=== PATIENT | male | born 1985 | race Caucasian/White ===

== ENCOUNTER → 2016-07-14 | Outpatient (CLI) | payer OTHER ==
[~2016-07-14] MED LIST: HYDR-3363 PO; IBUP600T OR; LYRI150C PO; SOMA350T PO; TRAM50TA2 PO; WELL100T OR
[2016-07-20 08:55] LABS: HCV Genotype 1a
== END ==
LOC: M LAB 12:48
PROVIDERS: ATTEND Family Medicine
DX: B18.2 Chronic viral hepatitis C (principal)

== ENCOUNTER → 2016-07-22 | Outpatient (CLI) | payer OTHER ==
--- NOTE | 2016-07-31 00:23 | ECWPNPC ---
PATIENT NAME: ANJELICA CORTEZ : 1985 GENDER: MALE VISIT DATE: 07/22/2016 DISCHARGE DATE: 07/22/16 1442 VISIT LOCKED DATE TIME: PHYSICIAN: CAROLE GIORDANO RESOURCE: CAROLE GIORDANO REASON FOR APPOINTMENT 1. MEDICATION HISTORY OF PRESENT ILLNESS FALL RISK SCREENING: SCREENING :NO FALLS IN THE PAST YEAR PAIN SCREENING: PATIENT HAS A COMPLAINT OF ACUTE OR CHRONIC PAIN :YES TODAY'S VISIT: NOTES: PT IS FORMALLY A PATIENT OF [facility] LAST SEEN HERE ON 02/02/12. MOST RECENTLY HE HAS BEEN FOLLOWED BY HIS PCP DR ARAUZ FOR CHRONIC LOW BACK PAIN. CURRENTLY IS WORKING WITH DR IRENE MARTINEZ. REPORTS PAIN IS CENTERED ACROSS THE WHOLE BACK WITH RADIATION TO THE HIPS AND THE LEGS TO THE LEVEL OF THE KNEE. RATES PAIN TODAY 7/10. NOTES THAT PROLONGED STANDING OR LIFTING AGGRAVATES THE PAIN. PAIN MAKES SLEEP DIFFICULT. HAS BEEN USING HEAT AND A BED MASSAGER WHICH CAN HELP. INTERMITTANT N/T IN FEET. NO RECENT IMAGING STUDIES. NO RECENT INJURIES OR TRAUMA. HAVING SOME ISSUES WITH CONSTIPATION. THIS IS NEW.. CURRENT MEDICATIONS TAKING ESCITALOPRAM OXALATE 20 MG TABLET 0.5 TABLET ORALLY ONCE A DAY TAKING SUBOXONE 8-2 MG FILM 1 FILM UNDER THE TONGUE AND ALLOW TO DISSOLVE SUBLINGUAL ONCE A DAY TAKING CLONIDINE HCL 0.2 MG TABLET 1 TABLET ORALLY ONCE A DAY TAKING CONCERTA 36 MG TABLET EXTENDED RELEASE 1 TABLET IN THE MORNING ORALLY ONCE A DAY TAKING IBUPROFEN 800 MG TABLET 1 TABLET WITH FOOD OR MILK ORALLY THREE TIMES DAILY NEEDED TAKING GABAPENTIN 800 MG TABLET 1 TABLET ORALLY THREE TIMES A DAY DISCONTINUED WELLBUTRIN SR 150 MG TABLET EXTENDED RELEASE 12 HOUR 1 TABLET ORALLY TWICE A DAY DISCONTINUED TYLENOL EXTRA STRENGTH 500 MG TABLET 2 TABLET ORALLY EVERY 6 HRS NEEDED DISCONTINUED LYRICA 100 MG CAPSULE 1 CAPSULE ORALLY TWICE A DAY DISCONTINUED FLEXERIL 10 MG TABLET 1 TABLET ORALLY ONCE A DAY AT NIGHT DISCONTINUED CUSTOM DO NOT USE TRAMADOL 50 MG TABLET ONE TAB ORALLY EVERY 12 HOURS PRN PAIN DISCONTINUED LEXAPRO 20 MG TABLET 0.5 TABLET ORALLY ONCE A DAY MEDICATION LIST REVIEWED AND RECONCILED WITH THE PATIENT PAST MEDICAL HISTORY 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 SOCIAL HISTORY GENERAL: TOBACCO USE ARE YOU A:CURRENT SMOKER 1/2 PPD X 15 YEARS HOW MANY CIGARETTES A DAY DO YOU SMOKE?11-20 HOW SOON AFTER YOU WAKE UP DO YOU SMOKE YOUR FIRST CIGARETTE?6-30 MIN HOW OFTEN DO YOU SMOKE CIGARETTES?EVERY DAY PATIENT COUNSELED ON THE DANGERS OF TOBACCO USE AND URGED TO QUIT:07/22/2016 ARE YOU INTERESTED IN QUITTING?NOT READY TO QUIT COUNSELED THE PATIENT ON SMOKING EFFECTS, EDUCATION [id number]/2017 LUNG CANCER SCREENING SMOKING STATUS:CURRENT SMOKER RECREATIONAL DRUG USE DENIES. CAFFEINE >5/DAY. HIV / HEP-C SCREENING HEP-C TEST OFFERED TO PATIENT: PT POSITIVE FOR HEPATITIS C OCCUPATION: UNEMPLOYED. DIET: REGULAR. EXERCISE: NO REGULAR EXERCISE. MARITAL STATUS: . PETS: 1 PUPPY. NONDENOMINATIONAL [id number] NONE LANGUAGE LANGUAGES SPOKEN:SAMI EDUCATION LEVEL OF EDUCATION:FINISHED HIGH SCHOOL LEARNING BARRIERS / SPECIAL NEEDS BARRIERS TO LEARNING?NO HEARING IMPAIRED?NO VISION IMPAIRED?NO COGNITIVELY IMPAIRED?NO READINESS TO LEARN?YES LEARNING PREFERENCES?NO TRAVEL OUTSIDE US: NONE. HOUSING: RENTS APARTMENT. DOMESTIC VIOLENCE NONE. PT ORIENTED TO UNIT, PLAN OF CARE. PT VERBALIZES UNDERSTANDING. HOSPITALIZATION/MAJOR DIAGNOSTIC PROCEDURE OPIATE ADDICTION TREATMENT 2013 REVIEW OF SYSTEMS CONSTITUTIONAL: ANY CHANGE IN YOUR MEDICAL CONDITION? NO . ANXIETY BEING TREATED FOR ANXIETY . CHILLS NO . FEVER NO . INFECTION: DO YOU HAVE NEW INFECTIONS? NO . DO YOU HAVE HISTORY OF MRSA? NO . MUSCULOSKELETAL: ANY NEW PATTERNS OF PAIN OR NUMBNESS? YES PT REPORTS NEW PAIN IN KNEES. PAIN IN BACK NOW EXTENDS BOTH TOWARDS UPPER BACK AND DOWN BUTTOCKS/TAIL BONE. . SYTEMIC LUPUS NO . GASTROENTEROLOGY: ANY NEW CHANGE IN BOWEL CONTROL? YES PT REPORTS INCREASED CONSTIPATION RECENTLY, HAS BOWEL MOVEMENTS ONLY 1-2 TIMES/WEEK, HARD TO PASS. . BARRETTS ESOPHAGUS NO . CIRRHOSIS NO . HEPATITIS YES . LIVER FAILURE NO . ACID REFLUX NO . UNEXPLAINED WEIGHT LOSS NO . GENITOURINARY: ANY NEW CHANGE IN BLADDER CONTROL? NO . IS THERE A CHANCE YOU COULD BE ? NO . HEMATOLOGY/LYMPH: GENERAL HEPATITIS C = VIRAL LOAD RECENTLY DRAWN - IS IN DISCUSSION WITH DR MARTINEZ REGARDING . DO YOU TAKE ANY BLOOD THINNERS? (FOR EXAMPLE- COUMADIN, PLAVIX, AGGRENOX, PLATEL, PRADAXA, OR XARELTO) NO . WHEN WAS YOUR LAST DOSE? DATE: TIME: . LOW PLATELET COUNT NO . SICKLE CELL DISEASE NO . VON WILLIEBRANDS NO . FACTOR V LEIDEN NO . THALLASEMIA NO . ANEMIA NO . EASY BRUISING NO . NEUROLOGY: HAVE YOU FALLEN IN THE PAST 6 MONTHS? NO . ANY NEW EXTREMITY NUMBNESS OR WEAKNESS? NO . HEAD INJURY NO . DEMENTIA NO . CEREBRAL PALSY NO . MULTIPLE SCLEROSIS NO . DIZZINESS NO . HEADACHE NO . STROKES NO . VERTIGO NO . CARDIOLOGY: DO YOU HAVE A PACEMAKER OR DEFIBRILLATOR? NO . ANGINA NO . HEART ATTACK NO . HEART SURGERY NO . CONGESTIVE HEART FAILURE/FLUID OVERLOAD NO . CHEST PAIN NO . HIGH BLOOD PRESSURE NO . IRREGULAR HEART BEAT NO . RESPIRATORY: HAVE YOU BEEN SICK IN THE PAST WEEK? NO . FEVER NO . FLU LIKE SYMPTOMS? NO . CPAP NO . BYPAP NO . ASTHMA NO . EMPHYSEMA NO . CHRONIC LUNG DISEASES NO . SHORTNESS OF BREATH ON EXERTION NO . COUGH NO . SNORING NO . INTEGUMENTARY: DO YOU HAVE ANY RASHES OR OPEN SORES? NO . ALLERGIC/IMMUNO: ARE YOU ALLERGIC TO SHELLFISH OR IV DYE? YES . ANY NEW ALLERGIES? NO . PSYCHIATRIC: DO YOU HAVE THOUGHTS OF HURTING YOURSELF OR SOMEONE ELSE? NO . ARE YOU ABUSED, NEGLECTED, OR IN AN UNSAFE ENVIRONMENT? NO . ENDOCRINOLOGY: ARE YOU DIABETIC? NO . THYROID DISORDER NO . OTHER: DO YOU NEED ANY PRESCRIPTIONS? NO . IF YES, PLEASE LIST: ____ . ANY NEW PROBLEMS WITH YOUR MEDICATIONS? NO . WHEN DID YOU LAST EAT? ____ . WHEN DID YOU LAST DRINK? ____ . WHAT DID YOU LAST DRINK? ____ . NAME OF PERSON DRIVING YOU HOME? ____ . DO YOU HAVE ANY OTHER QUESTIONS OR CONCERNS NO . REVIEWED BY: PROVIDER: CAROLE MILAN . VITAL SIGNS WT 176.6 LBS, HT 68 IN, BMI 26.85 INDEX, BP 126/68 MM HG, HR 61 /MIN, RR 16 /MIN, TEMP 98.8 F, OXYGEN SAT % 99%, SAFE IN ENV? (Y/N) YES, NA INITIALS SC 13:28, REVIEWED BY: VERITO. EXAMINATION GENERAL EXAMINATION: GENERAL APPEARANCE:APPEARS OLDER THAN STATED AGE. PSYCHALERT , ORIENTED X 3 , QUIET, AVOIDS EYE CONTACT. HEENT:NORMOCEPHALIC, NO LYMPHADENOPATHY, NIO THYROMEGLY. RORO DISCS IN EAR LOBES. LUNGS:CLEAR TO AUSCULTATION BILATERALLY, DECREASED AIR ENTRY AT , NO WHEEZES RALES OR RHONCHI. HEART:HEART RATE REGULAR, RAPID,, NO MURMURS, CLICK OR RUBS. MUSCULOSKELETAL:SLR+ 20 BILAT, POINT TENDER OVER LSP AND SIJ BILAT. FLEX TO 45 DEGREES, TPI ALONG SCAPULA BILATERALLY. , MUSCLE STRENGTH TESTING 5/5 BILATERAL LOWER ETREMITIES. POSTURE STOOPED. NEUROLOGIC EXAM:NO SENSORY DEFICEIT, DTR'S 3 + FEW BEATS CLONUS. . DIAGNOSTIC TESTS REVIEWEDNO RECENT IMAGING STUDIES. ASSESSMENTS DEGENERATIVE DISC DISEASE, LUMBAR - M51.36 (PRIMARY) MYALGIA - M79.1 LUMBAR RADICULOPATHY - M54.16 TREATMENT DEGENERATIVE DISC DISEASE, LUMBAR START SOMA TABLET, 350 MG, 1 TABLET NEEDED, ORALLY, BEFORE BEDTIME, 30 DAY(S), 30, REFILLS 1 [facility] MRI SPINE, L.S. WITHOUT [id number],SUSAN M 07/22/2016 2:31:16 PM > INCREASED LE WEAKNESS AND LADICULAR SYMPTOMS [facility] : SPINE,THORACIC W/BENDING [id number] CLINICAL NOTES: ISTOP REGISTRY REVIEWED AND DEMNOSTRATES COMPLLIANCE. IS CURRENTLY ON SUBOXONE THERAPY. HAS HAD NSAIDS X 6 WEEKS IN SUPERVISED SETTING WITHOUT IMPROVEMENT. HAS BEEN TRIED ON MUSCLE RELAXERS WITH DID HELP IN THE PAST BUT HAS HAD NUMEROUS TTRAMAS IN THE LAST 3 YEARS. WILL REQUEST AUTH FOR MRI OF LUMBAR SPINE AND WILL MOVE TO INTERVENTIONAL THERAPY. PROCEDURE CODES FA211 ESTABILISHED PATIENT [facility] FACILITY CHARGE DISPOSITION & COMMUNICATION FOLLOW UP 3-4 WEEKS (REASON: CHECK AUTH FOR MRI LUMBAR SPINE) ELECTRONICALLY SIGNED BY SRIKANTH ADDISON ON 07/30/2016 AT 06:09 PM EDT DISCLAIMER : THIS IS A VISIT SUMMARY EXTRACTED FROM THE [employer] CHART. IT IS NOT A COPY OF THE [employer] PROGRESS NOTE. MTDD
== END ==
LOC: M PAIN 13:20
PROVIDERS: ATTEND Nurse Practitioner Family
DX: G89.29 Other chronic pain (principal); M51.16 Intervertebral disc disorders with radiculopathy, lumbar region; M79.1 Myalgia; I10 Essential (primary) hypertension; B18.2 Chronic viral hepatitis C; F17.210 Nicotine dependence, cigarettes, uncomplicated; Z91.013 Allergy to seafood; Z79.1 Long term (current) use of non-steroidal anti-inflammatories (NSAID); Z79.899 Other long term (current) drug therapy

== ENCOUNTER → 2016-08-17 | Outpatient (CLI) | payer OTHER | LOC: M PAIN 14:00 | PROVIDERS: ATTEND Nurse Practitioner Family | DX: G89.29 Other chronic pain (principal) ==

== ENCOUNTER → 2016-08-21 | Outpatient (CLI) | payer OTHER ==
--- NOTE | 2016-09-09 00:27 | ECWPNPC ---
PATIENT NAME: ANJELICA CORTEZ : 1985 GENDER: MALE VISIT DATE: 08/21/2016 DISCHARGE DATE: 08/21/16 1139 VISIT LOCKED DATE TIME: PHYSICIAN: CAROLE GIORDANO RESOURCE: CAROLE GIORDANO REASON FOR APPOINTMENT 1. BACK HISTORY OF PRESENT ILLNESS HISTORY OF PRESENT ILLNESS: PAIN THE PATIENT DESCRIBES THE PAIN... FALL RISK SCREENING: SCREENING :NO FALLS IN THE PAST YEAR TODAY'S VISIT: NOTES: RATES PAIN LEVEL TODAY 6/10. DESCRIBES PAIN CONSTANT, SHARP AND STABBING, TENDER AND THROBBING SOR AND SHOOTING. . CURRENT MEDICATIONS TAKING ESCITALOPRAM OXALATE 20 MG TABLET 0.5 TABLET ORALLY ONCE A DAY, NOTES: TAKES NEEDED TAKING SUBOXONE 8-2 MG FILM 1 FILM UNDER THE TONGUE AND ALLOW TO DISSOLVE SUBLINGUAL ONCE A DAY TAKING CLONIDINE HCL 0.2 MG TABLET 1 TABLET ORALLY ONCE A DAY, NOTES: AT NIGHT ONLY TAKING CONCERTA 36 MG TABLET EXTENDED RELEASE 1 TABLET IN THE MORNING ORALLY ONCE A DAY TAKING IBUPROFEN 800 MG TABLET 1 TABLET WITH FOOD OR MILK ORALLY THREE TIMES DAILY NEEDED TAKING GABAPENTIN 800 MG TABLET 1 TABLET ORALLY THREE TIMES A DAY TAKING SOMA 350 MG TABLET 1 TABLET NEEDED ORALLY BID MEDICATION LIST REVIEWED AND RECONCILED WITH THE PATIENT PAST MEDICAL HISTORY 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 CONSTITUTIONAL: ANY CHANGE IN YOUR MEDICAL CONDITION? NO . CHILLS NO . FEVER NO . INFECTION: DO YOU HAVE NEW INFECTIONS? NO . DO YOU HAVE HISTORY OF MRSA? NO . MUSCULOSKELETAL: ANY NEW PATTERNS OF PAIN OR NUMBNESS? NO . GASTROENTEROLOGY: ANY NEW CHANGE IN BOWEL CONTROL? NO . GENITOURINARY: ANY NEW CHANGE IN BLADDER CONTROL? NO . IS THERE A CHANCE YOU COULD BE ? NO . HEMATOLOGY/LYMPH: DO YOU TAKE ANY BLOOD THINNERS? (FOR EXAMPLE- COUMADIN, PLAVIX, AGGRENOX, PLATEL, PRADAXA, OR XARELTO) NO . WHEN WAS YOUR LAST DOSE? DATE: TIME: . NEUROLOGY: HAVE YOU FALLEN IN THE PAST 6 MONTHS? NO . ANY NEW EXTREMITY NUMBNESS OR WEAKNESS? NO . CARDIOLOGY: DO YOU HAVE A PACEMAKER OR DEFIBRILLATOR? NO . RESPIRATORY: HAVE YOU BEEN SICK IN THE PAST WEEK? NO . FEVER NO . FLU LIKE SYMPTOMS? NO . COUGH NO . INTEGUMENTARY: DO YOU HAVE ANY RASHES OR OPEN SORES? NO . ALLERGIC/IMMUNO: ARE YOU ALLERGIC TO SHELLFISH OR IV DYE? SHELLFISH . ANY NEW ALLERGIES? NO . PSYCHIATRIC: DO YOU HAVE THOUGHTS OF HURTING YOURSELF OR SOMEONE ELSE? NO . ARE YOU ABUSED, NEGLECTED, OR IN AN UNSAFE ENVIRONMENT? NO . ENDOCRINOLOGY: ARE YOU DIABETIC? NO . OTHER: DO YOU NEED ANY PRESCRIPTIONS? NO . IF YES, PLEASE LIST: ____ . ANY NEW PROBLEMS WITH YOUR MEDICATIONS? NO . WHEN DID YOU LAST EAT? ____ . WHEN DID YOU LAST DRINK? ____ . WHAT DID YOU LAST DRINK? ____ . NAME OF PERSON DRIVING YOU HOME? ____ . DO YOU HAVE ANY OTHER QUESTIONS OR CONCERNS NO . VITAL SIGNS WT 175.6 LBS, HT 68 IN, BMI 26.70 INDEX, BP 119/67 MM HG, HR 64 /MIN, RR 16 /MIN, TEMP 98.6 F, OXYGEN SAT % 99%, NA INITIALS TR 1104. EXAMINATION GENERAL EXAMINATION: GENERAL APPEARANCE:APPEARS OLDER THAN STATED AGE. PSYCHALERT , ORIENTED X 3 , QUIET, AVOIDS EYE CONTACT. HEENT:NORMOCEPHALIC, NO LYMPHADENOPATHY, NIO THYROMEGLY. LARGE DISCS IN EAR LOBES. LUNGS:CLEAR TO AUSCULTATION BILATERALLY, DECREASED AIR ENTRY AT , NO WHEEZES RALES OR RHONCHI. HEART:HEART RATE REGULAR, RAPID,, NO MURMURS, CLICK OR RUBS. MUSCULOSKELETAL: MUSCLE STRENGTH TESTING 5/5 BILATERAL LOWER ETREMITIES. POSTURE STOOPED. POINT TENDERNESS OVER LUMBAR SPINOUS PROCESSES AND ACROSS THE LUMBOSACRAL AXIS. GAIT WIDE BASED, ANTALGIC. NEUROLOGIC EXAM:NO SENSORY DEFICEIT, DTR'S 3 + FEW BEATS CLONUS. . DIAGNOSTIC TESTS REVIEWEDNO RECENT IMAGING STUDIES. ASSESSMENTS DEGENERATIVE DISC DISEASE, LUMBAR - M51.36 (PRIMARY) MYALGIA - M79.1 LUMBAR RADICULOPATHY - M54.16 TREATMENT DEGENERATIVE DISC DISEASE, LUMBAR NOTES: CONSIDER FACET BLOCK AND RADIOFREQUENCY. CONTINUE EXERCISES AND STRETCHES. CONTINUE SOMA AND IBUPROFEN. CALL IF SCRIPTS NEEDED. CALL IF PAIN INCREASES. PROCEDURE CODES FA211 ESTABILISHED PATIENT [facility] FACILITY CHARGE DISPOSITION & COMMUNICATION FOLLOW UP 2 MONTHS (REASON: BACK PAIN) ELECTRONICALLY SIGNED BY SRIKANTH ADDISON ON 09/08/2016 AT 06:49 PM EDT DISCLAIMER : THIS IS A VISIT SUMMARY EXTRACTED FROM THE [employer] CHART. IT IS NOT A COPY OF THE [employer] PROGRESS NOTE. BERTRAND
== END ==
LOC: M PAIN 11:40
PROVIDERS: ATTEND Nurse Practitioner Family
DX: M51.36 Other intervertebral disc degeneration, lumbar region (principal); M79.1 Myalgia; M54.16 Radiculopathy, lumbar region; G89.29 Other chronic pain; Z79.899 Other long term (current) drug therapy; Z91.013 Allergy to seafood

== ENCOUNTER → 2018-06-13 | Outpatient (CLI) | payer SELFPAY | LOC: M OUTALCOH 09:02 | PROVIDERS: ATTEND Psychiatry & Neurology Psychiatry | DX: F11.20 Opioid dependence, uncomplicated (principal) ==

== ENCOUNTER 2018-07-06 13:26 | Emergency (ER) | payer MEDICAID ==
[~2018-07-06] VITALS: Ht 180.3 cm; Wt 88.0 kg
[2018-07-06 13:26] VITALS: BP 141/75
[2018-07-06] MEDS ORDERED: CLEO300C2 PO (14:07)
[2018-07-06] MEDS ORDERED: TRAM50TA2 PO (14:07)
== END 2018-07-06 14:13 | disposition home or self-care (01) ==
LOC: M ED 13:26
DX: K02.9 Dental caries, unspecified (principal); B19.20 Unspecified viral hepatitis C without hepatic coma; Z88.8 Allergy status to other drugs, medicaments and biological substances; F17.210 Nicotine dependence, cigarettes, uncomplicated

== ENCOUNTER 2019-10-30 08:30 | Emergency (ER) | payer MEDICAID, SELFPAY ==
[~2019-10-30 08:30] MED LIST changes: +CLEO300C2 PO
[2019-10-30 09:42] LABS: BASO # 0.1 10^3/uL (0.0-0.2); BASO % 0.8 % (0.0-1.0); EOS # 0.2 10^3/uL (0.0-0.5); EOS % 2.3 % (0.0-3.0); HEMATOCRIT 40.4 % (42.0-52.0); HEMOGLOBIN 12.5 g/dl (13.5-17.5); LYMPH # 1.2 10^3/uL (1.5-5.0); LYMPH % 14.9 % (24.0-44.0); MEAN CORPUSCULAR HEMOGLOBIN 29.2 pg (27.0-33.0); MEAN CORPUSCULAR HGB CONC 30.9 g/dl (32.0-36.5); MEAN CORPUSCULAR VOLUME 94.4 fl (80.0-96.0); MONO # 0.8 10^3/uL (0.0-0.8); MONO % 9.6 % (0.0-5.0); NEUTROPHILS # 5.7 10^3/uL (1.5-8.5); PLATELET COUNT, AUTOMATED 291 10^3/uL (150-450); RED BLOOD COUNT 4.28 10^6/uL (4.30-6.10); WHITE BLOOD COUNT 7.9 10^3/uL (4.0-10.0)
[2019-10-30 10:03] LABS: OSMOLALITY SERUM 289 MOSM/KG (275-295)
[2019-10-30 10:06] LABS: ACETAMINOPHEN LEVEL < 2.0 UG/ML (10.0-30.0); ALBUMIN 3.4 GM/DL (3.2-5.2); ALT/SGPT 45 U/L (12-78); BILIRUBIN,DIRECT 0.2 MG/DL (0.0-0.2); BILIRUBIN,TOTAL 0.5 MG/DL (0.2-1.0); BLOOD UREA NITROGEN 13 MG/DL (7-18); CALCIUM LEVEL 8.8 MG/DL (8.5-10.1); CARBON DIOXIDE LEVEL 31 MEQ/L (21-32); CHLORIDE LEVEL 104 MEQ/L (98-107); CPK CREATINE PHOSPHOKINASE 365 U/L (39-308); CREATININE FOR GFR 0.78 MG/DL (0.70-1.30); ETHYL ALCOHOL (ETHANOL) < 0.003 % (0.000-0.010); GLOMERULAR FILTRATION RATE > 60.0 (>60); GLUCOSE, FASTING 99 MG/DL (70-100); POTASSIUM SERUM 3.9 MEQ/L (3.5-5.1); SALICYLATE LEVEL < 1.7 MG/DL (5.0-30.0); SODIUM LEVEL 141 MEQ/L (136-145); THYROID STIMULATING HORMONE 0.362 uIU/ML (0.358-3.740); TOTAL PROTEIN 7.4 GM/DL (6.4-8.2)
--- NOTE | 2019-10-30 10:45 | REPVR ---
PROCEDURE INFORMATION: Exam: CT Head Without Contrast Exam date and time: 10/30/2019 10:24 AM Age: 34 years old Clinical indication: Altered mental status/memory loss TECHNIQUE: Imaging protocol: Computed tomography of the head without contrast. Radiation optimization: All CT scans at this facility use at least one of these dose optimization techniques: automated exposure control; mA and/or kV adjustment per patient size (includes targeted exams where dose is matched to clinical indication); or iterative reconstruction. COMPARISON: No relevant prior studies available. FINDINGS: Brain: There is mild prominence sulci for age consistent with mild atrophy/volume loss and this can be reversible such as associated with alcohol or substance abuse or steroid administration. There is no acute intracranial hemorrhage. No extra-axial fluid collection. No evidence of acute infarct. Bashir white differentiation is intact. There is no evidence of mass. There is no mass effect or midline shift. Ventricles: No ventriculomegaly. Bones/joints: No acute fracture. Sinuses: Unremarkable as visualized. No acute sinusitis. Mastoid air cells: No significant mastoid effusion. Soft tissues: Unremarkable as visualized. IMPRESSION: 1. No evidence of acute intracranial abnormality. 2. Mild volume loss for this patient's age. Electronically signed by: Citlali Boudreaux On 10/30/2019 10:45:06 AM
[2019-10-30 19:30] VITALS: BP 116/88
--- NOTE | 2019-11-08 11:06 | ECGEPIP ---
[facility] - ED Test Date: 2019-10-30 Pat Name: ANJELICA CORTEZ Department: Room: - Gender: Male Airline Managerial Supervisor: CARO : 1985 Requested By: TAYE Mariano Order Number: [id number] Reading MD: Sera Dalton Measurements Intervals [place] Rate: 65 P: 76 KS: 156 QRS: 36 QRSD: 103 T: 59 QT: 406 QTc: 424 Interpretive Statements SINUS RHYTHM NORMAL ECG SEE DOWNTIME SCANNED REPORT
--- NOTE | 2019-11-27 10:05 | REP ---
PORTABLE CHEST X-RAY: CLINICAL: Drug overdose FINDINGS: Mediastinum and cardiac silhouette are normal. Lung palacios are clear. No focal consolidation, effusion or pneumothorax. Skeletal structures are intact. IMPRESSION: Normal portable chest x-ray. No acute consolidation. MTDD
== END 2019-10-30 19:30 | disposition home or self-care (01) ==
LOC: M ED 08:30 → EDBD 08:30 → M ED 19:30
DX: F11.120 Opioid abuse with intoxication, uncomplicated (principal); B18.2 Chronic viral hepatitis C; F17.200 Nicotine dependence, unspecified, uncomplicated; Z88.8 Allergy status to other drugs, medicaments and biological substances
CPT/HCPCS: 36415; 70450; 71045; 80048; 80076; 82550; 83930; 84443; 85025; 93005; 93041; 94760; 99285; G0480

== ENCOUNTER → 2021-12-18 | Outpatient (REF) | payer OTHER ==
[2021-12-18 14:33] LABS: HEMATOCRIT 35.7 % (42.0-52.0); HEMOGLOBIN 10.9 g/dl (13.5-17.5); MEAN CORPUSCULAR HEMOGLOBIN 30.4 pg (27.0-33.0); MEAN CORPUSCULAR HGB CONC 30.5 g/dl (32.0-36.5); MEAN CORPUSCULAR VOLUME 99.7 fl (80.0-96.0); PLATELET COUNT, AUTOMATED 214 10^3/uL (150-450); RED BLOOD COUNT 3.58 10^6/uL (4.30-6.10); WHITE BLOOD COUNT 4.8 10^3/uL (4.0-10.0)
[2021-12-18 15:25] LABS: ALBUMIN 3.6 GM/DL (3.2-5.2); ALT/SGPT 66 U/L (12-78); BILIRUBIN,TOTAL 0.3 MG/DL (0.2-1.0); BLOOD UREA NITROGEN 22 MG/DL (7-18); CALCIUM LEVEL 8.8 MG/DL (8.5-10.1); CARBON DIOXIDE LEVEL 29 MEQ/L (21-32); CHLORIDE LEVEL 108 MEQ/L (98-107); CREATININE FOR GFR 0.73 MG/DL (0.70-1.30); GLOMERULAR FILTRATION RATE > 60.0 (>60); GLUCOSE, FASTING 84 MG/DL (70-100); POTASSIUM SERUM 4.9 MEQ/L (3.5-5.1); SODIUM LEVEL 143 MEQ/L (136-145); TOTAL PROTEIN 6.8 GM/DL (6.4-8.2)
[2021-12-18 16:09] LABS: HEPATITIS B SURFACE ANTIGEN NEGATIVE (NEGATIVE)
[2021-12-18 17:08] LABS: GC DNA AMPLIFICATION NEGATIVE (NEGATIVE)
[2021-12-18 17:35] LABS: HIV 1&2 SCREEN CENTAUR NEGATIVE (NEGATIVE)
[2021-12-18 19:12] LABS: HEPATITIS C VIRUS ABY INDEX > 11.0 INDEX (<0.8)
== END ==
LOC: M LAB REF 12:34
PROVIDERS: ATTEND Family Medicine
DX: F11.20 Opioid dependence, uncomplicated (principal)

== ENCOUNTER → 2022-03-20 | Outpatient (CLI) | payer OTHER | LOC: M WUC 10:49 | PROVIDERS: ATTEND Surgery | DX: M84.375A Stress fracture, left foot, initial encounter for fracture (principal) ==

== ENCOUNTER 2022-09-10 21:56 | Emergency (ER) | payer MEDICAID, OTHER, SELFPAY ==
[~2022-09-10] VITALS: Ht 180.3 cm; Wt 100.2 kg
[2022-09-10 22:05] VITALS: BP 150/90; TEMP 97.9; O2SAT 100
[2022-09-10 22:50] LABS: BASO # 0.1 10^3/uL (0.0-0.2); BASO % 0.5 % (0.0-1.0); EOS % 0.2 % (0.0-3.0); HEMATOCRIT 35.5 % (42.0-52.0); HEMOGLOBIN 12.2 g/dl (13.5-17.5); LYMPH # 1.2 10^3/uL (1.5-5.0); LYMPH % 12.6 % (24.0-44.0); MEAN CORPUSCULAR HEMOGLOBIN 31.2 pg (27.0-33.0); MEAN CORPUSCULAR HGB CONC 34.4 g/dl (32.0-36.5); MEAN CORPUSCULAR VOLUME 90.8 fl (80.0-96.0); MONO # 1.1 10^3/uL (0.0-0.8); MONO % 11.8 % (2.0-8.0); NEUTROPHILS % 74.5 % (36.0-66.0); PLATELET COUNT, AUTOMATED 257 10^3/uL (150-450); RED BLOOD COUNT 3.91 10^6/uL (4.30-6.10); WHITE BLOOD COUNT 9.4 10^3/uL (4.0-10.0)
[2022-09-10 23:18] LABS: BARBITURATES URINE NEGATIVE (NEGATIVE); BENZODIAZEPINES URINE NEGATIVE (NEGATIVE); CANNABINOIDS URINE NEGATIVE (NEGATIVE); OPIATES URINE NEGATIVE (NEGATIVE); PHENCYCLIDINE URINE NEGATIVE (NEGATIVE)
[2022-09-10 23:30] LABS: AMPHETAMINES LEVEL URINE POSITIVE (NEGATIVE); COCAINE METABOLITE URINE POSITIVE (NEGATIVE); METHADONE URINE POSITIVE (NEGATIVE)
[2022-09-10 23:39] LABS: BLOOD UREA NITROGEN 36 MG/DL (9-23); CALCIUM LEVEL 9.9 MG/DL (8.5-10.1); CARBON DIOXIDE LEVEL 28 MMOL/L (20-31); CHLORIDE LEVEL 101 MMOL/L (98-107); CPK CREATINE PHOSPHOKINASE 1756 U/L (46-171); GLOMERULAR FILTRATION RATE > 60.0 (>60); GLUCOSE, FASTING 108 MG/DL (60-100); MB/CK RELATIVE INDEX 0.85 (< OR =4); POTASSIUM SERUM 3.6 MMOL/L (3.5-5.1); SODIUM LEVEL 138 MMOL/L (136-145)
== END 2022-09-10 23:03 | disposition left against medical advice (07) ==
LOC: M ED 21:56
DX: R07.9 Chest pain, unspecified (principal); Z53.21 Procedure and treatment not carried out due to patient leaving prior to being seen by health care provider

== ENCOUNTER 2022-09-23 07:50 | Inpatient (IN) | payer MEDICAID ==
[~2022-09-23] VITALS: Ht 180.3 cm; Wt 87.9 kg
[2022-09-23] MEDS ORDERED: METH-1177 PO (08:08)
[2022-09-23] MEDS ORDERED: ACETAMINOPHEN TAB 650MG DOSE (2X325MG) PO ONE (08:35)
[2022-09-23 08:40] LABS: BASO % 0.2 % (0.0-1.0); HEMATOCRIT 32.2 % (42.0-52.0); HEMOGLOBIN 10.4 g/dl (13.5-17.5); LYMPH # 0.5 10^3/uL (1.5-5.0); MEAN CORPUSCULAR HEMOGLOBIN 31.2 pg (27.0-33.0); MEAN CORPUSCULAR HGB CONC 32.3 g/dl (32.0-36.5); MEAN CORPUSCULAR VOLUME 96.7 fl (80.0-96.0); MONO # 0.7 10^3/uL (0.0-0.8); MONO % 5.3 % (2.0-8.0); NEUTROPHILS # 11.6 10^3/uL (1.5-8.5); NEUTROPHILS % 89.9 % (36.0-66.0); PLATELET COUNT, AUTOMATED 224 10^3/uL (150-450); RED BLOOD COUNT 3.33 10^6/uL (4.30-6.10); WHITE BLOOD COUNT 12.9 10^3/uL (4.0-10.0)
[2022-09-23] MEDS ORDERED: NS 500 ML IV ONE (08:55)
[2022-09-23] MEDS ORDERED: NICOTINE 21MG/24HR 1 EA TRANSDERMAL TD SCH (09:00)
[2022-09-23 09:19] LABS: ALBUMIN 3.3 G/DL (3.2-5.2); ALKALINE PHOSPHATASE 70 U/L (46-116); ALT/SGPT 30 U/L (7.0-40); AST/SGOT 33 U/L (<34); BILIRUBIN,DIRECT 0.3 MG/DL (<0.4); BILIRUBIN,TOTAL 0.7 MG/DL (0.3-1.2); BLOOD UREA NITROGEN 14 MG/DL (9-23); CALCIUM LEVEL 8.7 MG/DL (8.5-10.1); CARBON DIOXIDE LEVEL 30 MMOL/L (20-31); CHLORIDE LEVEL 98 MMOL/L (98-107); CREATININE FOR GFR 0.59 MG/DL (0.70-1.30); ERYTHROCYTE SEDIMENTATION RATE 24 mm/hr (0-15); GLOMERULAR FILTRATION RATE > 60.0 (>60); GLUCOSE, FASTING 97 MG/DL (60-100); POTASSIUM SERUM 3.5 MMOL/L (3.5-5.1); SODIUM LEVEL 137 MMOL/L (136-145); TOTAL PROTEIN 6.4 G/DL (5.7-8.2)
[2022-09-23] MEDS ORDERED: VANCOMYCIN HCL 1,500 MG in NS 250 ML IV ONE (10:00)
[2022-09-23] MEDS ORDERED: VANCOMYCIN HCL 1,000 MG, VIAL MATE ADAPTER 1 EACH in D5W 250 ML IV SCH (10:40)
[2022-09-23] MEDS: VANCOMYCIN HCL 750 MG, VIAL MATE ADAPTER 1 EACH in D5W 250 ML IV ONE ×2 (11:08→11:13)
[2022-09-23] MEDS ORDERED: VANCOMYCIN HCL 750 MG, VIAL MATE ADAPTER 1 EACH in D5W 250 ML IV ONE (11:30)
[2022-09-23] MEDS ORDERED: MED REC CURRENTLY UNOBTAINABLE XX SCH (11:45)
[2022-09-23 11:54] LABS: INR 1.13; PROTHROMBIN TIME 14.7 SECONDS (12.5-14.5)
[2022-09-23 11:55] LABS: PARTIAL THROMBOPLASTIN TIME 30.8 SECONDS (24.8-34.2)
[2022-09-23] MEDS ORDERED: HOME MED LIST COMPLETE! XX SCH (13:30)
[2022-09-23] MEDS ORDERED: PROHANCE 279.3MG/ML 15ML VIAL As Ordered ONE (14:22)
[2022-09-23 15:00] VITALS: BP 114/68; TEMP 97.9; O2SAT 100
[2022-09-23] MEDS: NICOTINE 21MG/24HR 1 EA TRANSDERMAL TD SCH (15:41)
[2022-09-23] MEDS: ACETAMINOPHEN TAB 650MG DOSE (2X325MG) PO PRN ×2 (15:41→20:17)
[2022-09-23 19:47] VITALS: BP 116/68; TEMP 98.6; O2SAT 100
[2022-09-23] MEDS: VANCOMYCIN HCL 1,000 MG, VIAL MATE ADAPTER 1 EACH in D5W 250 ML IV SCH (20:18)
[2022-09-23] MEDS: GABAPENTIN 100 MG CAP PO SCH (23:17)
[2022-09-24] MEDS: ACETAMINOPHEN TAB 650MG DOSE (2X325MG) PO PRN ×2 (03:50→20:22)
[2022-09-24] MEDS: VANCOMYCIN HCL 1,000 MG, VIAL MATE ADAPTER 1 EACH in D5W 250 ML IV SCH ×3 (03:50→20:22)
[2022-09-24 06:01] VITALS: BP 115/68; TEMP 98.1; O2SAT 99
[2022-09-24 06:37] LABS: HEMATOCRIT 34.1 % (42.0-52.0); MEAN CORPUSCULAR HEMOGLOBIN 31.6 pg (27.0-33.0); MEAN CORPUSCULAR HGB CONC 32.3 g/dl (32.0-36.5); PLATELET COUNT, AUTOMATED 176 10^3/uL (150-450); RED BLOOD COUNT 3.48 10^6/uL (4.30-6.10); WHITE BLOOD COUNT 4.8 10^3/uL (4.0-10.0)
[2022-09-24 07:12] LABS: ALBUMIN 2.7 G/DL (3.2-5.2); ALKALINE PHOSPHATASE 68 U/L (46-116); ALT/SGPT 31 U/L (7.0-40); AST/SGOT 35 U/L (<34); BILIRUBIN,TOTAL 0.5 MG/DL (0.3-1.2); BLOOD UREA NITROGEN 11 MG/DL (9-23); CALCIUM LEVEL 8.1 MG/DL (8.5-10.1); CARBON DIOXIDE LEVEL 32 MMOL/L (20-31); CHLORIDE LEVEL 103 MMOL/L (98-107); CREATININE FOR GFR 0.54 MG/DL (0.70-1.30); GLOMERULAR FILTRATION RATE > 60.0 (>60); GLUCOSE, FASTING 90 MG/DL (60-100); POTASSIUM SERUM 3.2 MMOL/L (3.5-5.1); SODIUM LEVEL 142 MMOL/L (136-145); TOTAL PROTEIN 5.7 G/DL (5.7-8.2)
[2022-09-24] MEDS ORDERED: HYDR-3490 PO (08:38)
[2022-09-24] MEDS ORDERED: OMEP1CAP73 PO (08:38)
[2022-09-24] MEDS ORDERED: COLA100C5 PO (08:38)
[2022-09-24] MEDS ORDERED: HOME MED LIST COMPLETE! XX SCH (08:40)
[2022-09-24] MEDS: METHADONE 10MG TAB PO SCH (09:30)
[2022-09-24] MEDS: GABAPENTIN 100 MG CAP PO SCH ×2 (09:30→20:22)
[2022-09-24] MEDS: ENOXAPARIN 40MG/0.4ML SYRINGE (J1650 PER 10MG) SC SCH (09:30)
[2022-09-24 14:00] VITALS: BP 131/78; TEMP 98.6; O2SAT 99
[2022-09-24] MEDS: NICOTINE 21MG/24HR 1 EA TRANSDERMAL TD SCH (15:20)
[2022-09-24] MEDS: OMEPRAZOLE 20MG CAP PO SCH (15:24)
[2022-09-24] MEDS: POTASSIUM CHLORIDE 10MEQ SR TABLET PO SCH ×2 (16:16→17:31)
[2022-09-24 19:38] VITALS: BP 126/80; TEMP 98.8; O2SAT 99
[2022-09-24] MEDS: DOCUSATE SODIUM 100MG CAPSULE PO SCH (20:22)
[2022-09-25] VITALS (7 sets, daily range): BP systolic 98–130; BP diastolic 60–81; TEMP 97.9–98.6; O2SAT 96–98
[2022-09-25] MEDS: VANCOMYCIN HCL 1,000 MG, VIAL MATE ADAPTER 1 EACH in D5W 250 ML IV SCH (04:56)
[2022-09-25] MEDS: ACETAMINOPHEN TAB 650MG DOSE (2X325MG) PO PRN ×3 (06:13→21:43)
[2022-09-25 06:34] LABS: HEMOGLOBIN 10.4 g/dl (13.5-17.5); MEAN CORPUSCULAR HEMOGLOBIN 31.5 pg (27.0-33.0); MEAN CORPUSCULAR HGB CONC 32.5 g/dl (32.0-36.5); PLATELET COUNT, AUTOMATED 193 10^3/uL (150-450)
[2022-09-25 06:59] LABS: ALBUMIN 2.6 G/DL (3.2-5.2); ALKALINE PHOSPHATASE 70 U/L (46-116); ALT/SGPT 33 U/L (7.0-40); AST/SGOT 33 U/L (<34); BILIRUBIN,TOTAL 0.2 MG/DL (0.3-1.2); BLOOD UREA NITROGEN 9 MG/DL (9-23); CARBON DIOXIDE LEVEL 34 MMOL/L (20-31); CHLORIDE LEVEL 104 MMOL/L (98-107); CREATININE FOR GFR 0.55 MG/DL (0.70-1.30); GLOMERULAR FILTRATION RATE > 60.0 (>60); GLUCOSE, FASTING 88 MG/DL (60-100); POTASSIUM SERUM 3.6 MMOL/L (3.5-5.1); SODIUM LEVEL 143 MMOL/L (136-145); TOTAL PROTEIN 5.4 G/DL (5.7-8.2)
[2022-09-25] MEDS: METHADONE 10MG TAB PO SCH (08:52)
[2022-09-25] MEDS: GABAPENTIN 100 MG CAP PO SCH ×2 (08:53→20:59)
[2022-09-25] MEDS: OMEPRAZOLE 20MG CAP PO SCH (08:53)
[2022-09-25] MEDS ORDERED: propofoL 200 MG/20 ML VIAL As Ordered ONE ×2 (11:32→12:24)
[2022-09-25] MEDS ORDERED: LIDOCAINE 2% 100MG/5ML SDV (FOR ANES.) As Ordered ONE ×2 (11:33→11:34)
[2022-09-25] MEDS ORDERED: LIDOCAINE 1% SDV 30ML VIAL As Ordered ONE (11:36)
[2022-09-25] MEDS ORDERED: fentaNYL 100 MCG/2 ML INJECTION As Ordered ONE (11:36)
[2022-09-25] MEDS ORDERED: ONDANSETRON 4MG 2ML VIAL As Ordered ONE (11:41)
[2022-09-25] MEDS ORDERED: MIDAZOLAM INJ 2MG/2ML VIAL As Ordered ONE (11:51)
[2022-09-25] MEDS: ENOXAPARIN 40MG/0.4ML SYRINGE (J1650 PER 10MG) SC SCH (12:00)
[2022-09-25] MEDS: DOCUSATE SODIUM 100MG CAPSULE PO SCH ×2 (12:00→20:59)
[2022-09-25] MEDS ORDERED: CHLOROPROCAINE PRES. FREE 3% 20ML VIAL As Ordered ONE ×2 (12:21→12:22)
[2022-09-25] MEDS ORDERED: oxyCODONE 5MG TAB PO PRN (12:30)
[2022-09-25] MEDS ORDERED: MORPHINE 2 MG/ML 1ML VIAL IV PRN (12:30)
[2022-09-25] MEDS ORDERED: fentaNYL 100 MCG/2 ML INJECTION IV PRN (12:30)
[2022-09-25] MEDS ORDERED: ONDANSETRON 4MG 2ML VIAL IV PRN (12:30)
[2022-09-25] MEDS ORDERED: LR 1,000 ML IV SCH (12:30)
[2022-09-25] MEDS: ceFAZolin SOD 2 GM in IV 1 EA IV SCH ×2 (14:00→20:59)
[2022-09-25] MEDS: NICOTINE 21MG/24HR 1 EA TRANSDERMAL TD SCH (15:12)
[2022-09-25] MEDS ORDERED: MORPHINE 2 MG/ML 1ML VIAL IV ONE (16:00)
[2022-09-25] MEDS: LACTOBACILLUS ACIDOPHILUS CAP (BACID) PO SCH (17:26)
[2022-09-25] MEDS: traMADol 50 MG TAB PO PRN ×2 (17:32→21:44)
[2022-09-26 02:00] VITALS: BP 123/62; TEMP 98.3; O2SAT 95
[2022-09-26] MEDS: ceFAZolin SOD 2 GM in IV 1 EA IV SCH ×3 (05:20→20:14)
[2022-09-26] MEDS: traMADol 50 MG TAB PO PRN ×4 (05:21→20:15)
[2022-09-26] MEDS: ACETAMINOPHEN TAB 650MG DOSE (2X325MG) PO PRN ×4 (05:21→20:14)
[2022-09-26 06:00] VITALS: BP 124/81; TEMP 97; O2SAT 98
[2022-09-26 06:45] LABS: HEMATOCRIT 33.1 % (42.0-52.0); HEMOGLOBIN 10.5 g/dl (13.5-17.5); MEAN CORPUSCULAR HEMOGLOBIN 31.3 pg (27.0-33.0); MEAN CORPUSCULAR HGB CONC 31.7 g/dl (32.0-36.5); MEAN CORPUSCULAR VOLUME 98.5 fl (80.0-96.0); PLATELET COUNT, AUTOMATED 200 10^3/uL (150-450); RED BLOOD COUNT 3.36 10^6/uL (4.30-6.10); WHITE BLOOD COUNT 5.6 10^3/uL (4.0-10.0)
[2022-09-26] MEDS ORDERED: MORPHINE 2 MG/ML 1ML VIAL IV ONE (07:00)
[2022-09-26 07:09] LABS: ALBUMIN 2.6 G/DL (3.2-5.2); ALKALINE PHOSPHATASE 75 U/L (46-116); ALT/SGPT 33 U/L (7.0-40); AST/SGOT 30 U/L (<34); BILIRUBIN,TOTAL 0.2 MG/DL (0.3-1.2); BLOOD UREA NITROGEN 9 MG/DL (9-23); CARBON DIOXIDE LEVEL 33 MMOL/L (20-31); CHLORIDE LEVEL 102 MMOL/L (98-107); CREATININE FOR GFR 0.57 MG/DL (0.70-1.30); GLOMERULAR FILTRATION RATE > 60.0 (>60); GLUCOSE, FASTING 122 MG/DL (60-100); POTASSIUM SERUM 3.9 MMOL/L (3.5-5.1); SODIUM LEVEL 141 MMOL/L (136-145); TOTAL PROTEIN 5.5 G/DL (5.7-8.2)
[2022-09-26] MEDS: METHADONE 10MG TAB PO SCH (09:12)
[2022-09-26] MEDS: GABAPENTIN 100 MG CAP PO SCH ×2 (09:13→20:14)
[2022-09-26] MEDS: LACTOBACILLUS ACIDOPHILUS CAP (BACID) PO SCH ×2 (09:13→18:01)
[2022-09-26] MEDS: OMEPRAZOLE 20MG CAP PO SCH (09:13)
[2022-09-26] MEDS: DOCUSATE SODIUM 100MG CAPSULE PO SCH ×2 (09:13→20:14)
[2022-09-26] MEDS: ENOXAPARIN 40MG/0.4ML SYRINGE (J1650 PER 10MG) SC SCH (09:16)
[2022-09-26 10:00] VITALS: BP 122/70; TEMP 98.1; O2SAT 98
[2022-09-26 14:00] VITALS: BP 116/61; TEMP 98.2; O2SAT 97
[2022-09-26] MEDS: NICOTINE 21MG/24HR 1 EA TRANSDERMAL TD SCH (15:24)
[2022-09-26] MEDS ORDERED: ceFAZolin 2 GM/D5W 50 ML IV BAG As Ordered ONE (20:11)
[2022-09-26 21:26] VITALS: BP 111/62; TEMP 97.7; O2SAT 98
[2022-09-27] MEDS: ACETAMINOPHEN TAB 650MG DOSE (2X325MG) PO PRN (04:59)
[2022-09-27] MEDS: ceFAZolin SOD 2 GM in IV 1 EA IV SCH ×3 (04:59→20:38)
[2022-09-27] MEDS: traMADol 50 MG TAB PO PRN (05:00)
[2022-09-27 06:00] VITALS: BP 114/63; TEMP 98.1; O2SAT 96
[2022-09-27 06:35] LABS: HEMATOCRIT 34.6 % (42.0-52.0); HEMOGLOBIN 10.9 g/dl (13.5-17.5); MEAN CORPUSCULAR HEMOGLOBIN 30.6 pg (27.0-33.0); MEAN CORPUSCULAR HGB CONC 31.5 g/dl (32.0-36.5); MEAN CORPUSCULAR VOLUME 97.2 fl (80.0-96.0); PLATELET COUNT, AUTOMATED 188 10^3/uL (150-450); RED BLOOD COUNT 3.56 10^6/uL (4.30-6.10); WHITE BLOOD COUNT 4.7 10^3/uL (4.0-10.0)
[2022-09-27 07:00] LABS: ALBUMIN 2.6 G/DL (3.2-5.2); ALKALINE PHOSPHATASE 97 U/L (46-116); ALT/SGPT 32 U/L (7.0-40); AST/SGOT 38 U/L (<34); BILIRUBIN,TOTAL 0.3 MG/DL (0.3-1.2); BLOOD UREA NITROGEN 9 MG/DL (9-23); CALCIUM LEVEL 7.9 MG/DL (8.5-10.1); CARBON DIOXIDE LEVEL 32 MMOL/L (20-31); CHLORIDE LEVEL 102 MMOL/L (98-107); CREATININE FOR GFR 0.59 MG/DL (0.70-1.30); GLOMERULAR FILTRATION RATE > 60.0 (>60); GLUCOSE, FASTING 95 MG/DL (60-100); POTASSIUM SERUM 3.6 MMOL/L (3.5-5.1); SODIUM LEVEL 143 MMOL/L (136-145); TOTAL PROTEIN 5.5 G/DL (5.7-8.2)
[2022-09-27 07:50] LABS: CHOLESTEROL LEVEL 116 MG/DL (<200); CHOLESTEROL RISK RATIO 3.02 (<5); HDL CHOLESTEROL 38.3 MG/DL (>40); LDL CHOLESTEROL 60.3 MG/DL (<100); NON-HDL-C 77.7 MG/DL; TRIGLYCERIDES LEVEL 87 MG/DL (<150)
[2022-09-27 08:36] LABS: HEMOGLOBIN A1c 4.9 % (4.0-6.0)
[2022-09-27] MEDS: LACTOBACILLUS ACIDOPHILUS CAP (BACID) PO SCH ×2 (09:31→17:28)
[2022-09-27] MEDS: GABAPENTIN 100 MG CAP PO SCH ×2 (09:32→20:38)
[2022-09-27] MEDS: OMEPRAZOLE 20MG CAP PO SCH (09:32)
[2022-09-27] MEDS: DOCUSATE SODIUM 100MG CAPSULE PO SCH ×2 (09:32→20:38)
[2022-09-27] MEDS: ENOXAPARIN 40MG/0.4ML SYRINGE (J1650 PER 10MG) SC SCH (09:33)
[2022-09-27] MEDS: METHADONE 10MG TAB PO SCH (09:33)
[2022-09-27] MEDS: PERCOCET 5MG/325MG TAB PO PRN ×3 (09:35→20:37)
[2022-09-27 14:00] VITALS: BP 114/67; TEMP 98.2; O2SAT 98
[2022-09-27] MEDS: NICOTINE 21MG/24HR 1 EA TRANSDERMAL TD SCH (15:33)
[2022-09-27 20:35] VITALS: BP 113/66; TEMP 97.9; O2SAT 99
[2022-09-28 03:25] VITALS: BP 145/89; TEMP 102.3; O2SAT 95
[2022-09-28 05:34] VITALS: BP 112/65; TEMP 98.1; O2SAT 99
[2022-09-28] MEDS: ceFAZolin SOD 2 GM in IV 1 EA IV SCH (05:38)
[2022-09-28] MEDS: PERCOCET 5MG/325MG TAB PO PRN ×4 (05:39→20:35)
[2022-09-28 06:08] LABS: HEMATOCRIT 34.5 % (42.0-52.0); HEMOGLOBIN 10.6 g/dl (13.5-17.5); MEAN CORPUSCULAR HEMOGLOBIN 30.5 pg (27.0-33.0); MEAN CORPUSCULAR HGB CONC 30.7 g/dl (32.0-36.5); MEAN CORPUSCULAR VOLUME 99.1 fl (80.0-96.0); PLATELET COUNT, AUTOMATED 212 10^3/uL (150-450); RED BLOOD COUNT 3.48 10^6/uL (4.30-6.10)
[2022-09-28 06:21] LABS: ALBUMIN 2.6 G/DL (3.2-5.2); ALKALINE PHOSPHATASE 104 U/L (46-116); ALT/SGPT 29 U/L (7.0-40); AST/SGOT 31 U/L (<34); BILIRUBIN,TOTAL 0.2 MG/DL (0.3-1.2); BLOOD UREA NITROGEN 11 MG/DL (9-23); CALCIUM LEVEL 8.2 MG/DL (8.5-10.1); CARBON DIOXIDE LEVEL 34 MMOL/L (20-31); CHLORIDE LEVEL 103 MMOL/L (98-107); CREATININE FOR GFR 0.63 MG/DL (0.70-1.30); GLOMERULAR FILTRATION RATE > 60.0 (>60); GLUCOSE, FASTING 121 MG/DL (60-100); SODIUM LEVEL 143 MMOL/L (136-145); TOTAL PROTEIN 5.6 G/DL (5.7-8.2)
[2022-09-28 06:49] LABS: ERYTHROCYTE SEDIMENTATION RATE 31 mm/hr (0-15)
[2022-09-28] MEDS: DOCUSATE SODIUM 100MG CAPSULE PO SCH ×2 (08:11→20:34)
[2022-09-28] MEDS: LACTOBACILLUS ACIDOPHILUS CAP (BACID) PO SCH ×2 (08:11→17:39)
[2022-09-28] MEDS: OMEPRAZOLE 20MG CAP PO SCH (08:11)
[2022-09-28] MEDS: METHADONE 10MG TAB PO SCH (08:12)
[2022-09-28] MEDS: GABAPENTIN 100 MG CAP PO SCH ×2 (08:12→20:34)
[2022-09-28] MEDS: ENOXAPARIN 40MG/0.4ML SYRINGE (J1650 PER 10MG) SC SCH (08:12)
[2022-09-28] MEDS: CEPHALEXIN 500 MG CAP PO SCH ×3 (13:08→20:35)
[2022-09-28] MEDS: NICOTINE 21MG/24HR 1 EA TRANSDERMAL TD SCH (15:14)
[2022-09-29 05:51] LABS: HEMATOCRIT 34.8 % (42.0-52.0); HEMOGLOBIN 10.9 g/dl (13.5-17.5); MEAN CORPUSCULAR HEMOGLOBIN 30.8 pg (27.0-33.0); MEAN CORPUSCULAR HGB CONC 31.3 g/dl (32.0-36.5); MEAN CORPUSCULAR VOLUME 98.3 fl (80.0-96.0); PLATELET COUNT, AUTOMATED 222 10^3/uL (150-450); RED BLOOD COUNT 3.54 10^6/uL (4.30-6.10); WHITE BLOOD COUNT 4.5 10^3/uL (4.0-10.0)
[2022-09-29 05:53] VITALS: BP 116/65; TEMP 98.8; O2SAT 99
[2022-09-29 06:20] LABS: ALBUMIN 2.7 G/DL (3.2-5.2); ALKALINE PHOSPHATASE 104 U/L (46-116); ALT/SGPT 32 U/L (7.0-40); AST/SGOT 37 U/L (<34); BILIRUBIN,TOTAL 0.2 MG/DL (0.3-1.2); BLOOD UREA NITROGEN 12 MG/DL (9-23); CALCIUM LEVEL 8.3 MG/DL (8.5-10.1); CARBON DIOXIDE LEVEL 32 MMOL/L (20-31); CHLORIDE LEVEL 103 MMOL/L (98-107); CREATININE FOR GFR 0.58 MG/DL (0.70-1.30); GLOMERULAR FILTRATION RATE > 60.0 (>60); GLUCOSE, FASTING 99 MG/DL (60-100); POTASSIUM SERUM 3.5 MMOL/L (3.5-5.1); SODIUM LEVEL 142 MMOL/L (136-145); TOTAL PROTEIN 5.7 G/DL (5.7-8.2)
[2022-09-29] MEDS: PERCOCET 5MG/325MG TAB PO PRN ×4 (07:28→19:51)
[2022-09-29] MEDS: OMEPRAZOLE 20MG CAP PO SCH (07:28)
[2022-09-29] MEDS: GABAPENTIN 100 MG CAP PO SCH ×2 (07:28→20:00)
[2022-09-29] MEDS: CEPHALEXIN 500 MG CAP PO SCH ×4 (07:29→20:00)
[2022-09-29] MEDS: LACTOBACILLUS ACIDOPHILUS CAP (BACID) PO SCH ×2 (07:29→17:01)
[2022-09-29] MEDS: DOCUSATE SODIUM 100MG CAPSULE PO SCH ×2 (07:29→20:00)
[2022-09-29] MEDS: METHADONE 10MG TAB PO SCH (07:29)
[2022-09-29] MEDS: ENOXAPARIN 40MG/0.4ML SYRINGE (J1650 PER 10MG) SC SCH (07:30)
[2022-09-29] MEDS ORDERED: RISATAB3 PO (11:07)
[2022-09-29] MEDS ORDERED: OMEP-173 PO (11:07)
[2022-09-29] MEDS ORDERED: CEPH500C PO (11:07)
[2022-09-29] MEDS: NICOTINE 21MG/24HR 1 EA TRANSDERMAL TD SCH (15:44)
[2022-09-30 05:59] VITALS: BP 115/65; TEMP 98.1; O2SAT 99
[2022-09-30] MEDS: PERCOCET 5MG/325MG TAB PO PRN ×5 (06:04→20:50)
[2022-09-30] MEDS: LACTOBACILLUS ACIDOPHILUS CAP (BACID) PO SCH ×2 (09:22→18:40)
[2022-09-30] MEDS: OMEPRAZOLE 20MG CAP PO SCH (09:22)
[2022-09-30] MEDS: DOCUSATE SODIUM 100MG CAPSULE PO SCH ×2 (09:22→20:50)
[2022-09-30] MEDS: GABAPENTIN 100 MG CAP PO SCH ×2 (09:22→20:50)
[2022-09-30] MEDS: METHADONE 10MG TAB PO SCH (09:22)
[2022-09-30] MEDS: CEPHALEXIN 500 MG CAP PO SCH ×4 (09:22→20:50)
[2022-09-30] MEDS: ENOXAPARIN 40MG/0.4ML SYRINGE (J1650 PER 10MG) SC SCH (09:22)
[2022-09-30] MEDS: NICOTINE 21MG/24HR 1 EA TRANSDERMAL TD SCH (15:57)
[2022-10-01 06:02] VITALS: BP 114/62; TEMP 97.8; O2SAT 96
[2022-10-01] MEDS: LACTOBACILLUS ACIDOPHILUS CAP (BACID) PO SCH ×2 (07:44→17:32)
[2022-10-01] MEDS: PERCOCET 5MG/325MG TAB PO PRN ×4 (07:45→21:50)
[2022-10-01] MEDS: DOCUSATE SODIUM 100MG CAPSULE PO SCH ×2 (09:00→21:00)
[2022-10-01] MEDS: GABAPENTIN 100 MG CAP PO SCH ×2 (09:12→21:50)
[2022-10-01] MEDS: CEPHALEXIN 500 MG CAP PO SCH ×4 (09:12→21:50)
[2022-10-01] MEDS: OMEPRAZOLE 20MG CAP PO SCH (09:12)
[2022-10-01] MEDS: METHADONE 10MG TAB PO SCH (09:13)
[2022-10-01] MEDS: ENOXAPARIN 40MG/0.4ML SYRINGE (J1650 PER 10MG) SC SCH (09:14)
[2022-10-01] MEDS: NICOTINE 21MG/24HR 1 EA TRANSDERMAL TD SCH (16:29)
[2022-10-02 06:00] VITALS: BP 112/64; TEMP 98.1; O2SAT 99
[2022-10-02] MEDS: OMEPRAZOLE 20MG CAP PO SCH (08:19)
[2022-10-02] MEDS: GABAPENTIN 100 MG CAP PO SCH ×2 (08:19→19:44)
[2022-10-02] MEDS: CEPHALEXIN 500 MG CAP PO SCH ×4 (08:19→19:44)
[2022-10-02] MEDS: PERCOCET 5MG/325MG TAB PO PRN ×3 (08:20→17:00)
[2022-10-02] MEDS: DOCUSATE SODIUM 100MG CAPSULE PO SCH ×2 (08:20→19:56)
[2022-10-02] MEDS: LACTOBACILLUS ACIDOPHILUS CAP (BACID) PO SCH ×2 (08:20→16:59)
[2022-10-02] MEDS: ENOXAPARIN 40MG/0.4ML SYRINGE (J1650 PER 10MG) SC SCH (08:21)
[2022-10-02] MEDS: METHADONE 10MG TAB PO SCH (08:21)
[2022-10-02] MEDS: NICOTINE 21MG/24HR 1 EA TRANSDERMAL TD SCH (17:00)
[2022-10-02] MEDS: traMADol 50 MG TAB PO PRN (19:45)
[2022-10-03] MEDS: PERCOCET 5MG/325MG TAB PO PRN ×4 (06:32→20:10)
[2022-10-03 06:50] VITALS: BP 114/64; TEMP 97.8; O2SAT 98
[2022-10-03 08:00] VITALS: BP 114/64; TEMP 97.8; O2SAT 98
[2022-10-03] MEDS: DOCUSATE SODIUM 100MG CAPSULE PO SCH ×2 (08:03→20:08)
[2022-10-03] MEDS: LACTOBACILLUS ACIDOPHILUS CAP (BACID) PO SCH ×2 (08:03→17:41)
[2022-10-03] MEDS: METHADONE 10MG TAB PO SCH (08:04)
[2022-10-03] MEDS: OMEPRAZOLE 20MG CAP PO SCH (08:05)
[2022-10-03] MEDS: GABAPENTIN 100 MG CAP PO SCH ×2 (08:05→20:08)
[2022-10-03] MEDS: CEPHALEXIN 500 MG CAP PO SCH ×4 (08:05→20:08)
[2022-10-03] MEDS: ENOXAPARIN 40MG/0.4ML SYRINGE (J1650 PER 10MG) SC SCH (08:05)
[2022-10-03] MEDS: traMADol 50 MG TAB PO PRN (13:15)
[2022-10-03] MEDS: NICOTINE 21MG/24HR 1 EA TRANSDERMAL TD SCH (17:42)
[2022-10-04 05:03] VITALS: BP 124/62; TEMP 98.4; O2SAT 100
[2022-10-04] MEDS: METHADONE 10MG TAB PO SCH (07:48)
[2022-10-04] MEDS: ENOXAPARIN 40MG/0.4ML SYRINGE (J1650 PER 10MG) SC SCH (07:49)
[2022-10-04] MEDS: PERCOCET 5MG/325MG TAB PO PRN ×4 (07:50→20:47)
[2022-10-04] MEDS: LACTOBACILLUS ACIDOPHILUS CAP (BACID) PO SCH ×2 (07:50→17:41)
[2022-10-04] MEDS: CEPHALEXIN 500 MG CAP PO SCH ×4 (07:50→20:46)
[2022-10-04] MEDS: OMEPRAZOLE 20MG CAP PO SCH (07:50)
[2022-10-04] MEDS: GABAPENTIN 100 MG CAP PO SCH ×2 (07:50→20:46)
[2022-10-04] MEDS: DOCUSATE SODIUM 100MG CAPSULE PO SCH ×2 (07:51→20:46)
[2022-10-04] MEDS ORDERED: LORazepam 0.5 MG TAB PO ONE (14:25)
[2022-10-04] MEDS: NICOTINE 21MG/24HR 1 EA TRANSDERMAL TD SCH (16:30)
[2022-10-05 05:14] VITALS: BP 126/65; TEMP 97.9; O2SAT 99
[2022-10-05] MEDS: ENOXAPARIN 40MG/0.4ML SYRINGE (J1650 PER 10MG) SC SCH (09:00)
[2022-10-05] MEDS: DOCUSATE SODIUM 100MG CAPSULE PO SCH ×2 (09:00→19:57)
[2022-10-05] MEDS: METHADONE 10MG TAB PO SCH (09:25)
[2022-10-05] MEDS: PERCOCET 5MG/325MG TAB PO PRN ×3 (09:26→19:04)
[2022-10-05] MEDS: CEPHALEXIN 500 MG CAP PO SCH ×4 (09:27→19:57)
[2022-10-05] MEDS: LACTOBACILLUS ACIDOPHILUS CAP (BACID) PO SCH ×2 (09:27→16:37)
[2022-10-05] MEDS: GABAPENTIN 100 MG CAP PO SCH ×2 (09:27→19:57)
[2022-10-05] MEDS: OMEPRAZOLE 20MG CAP PO SCH (09:27)
[2022-10-05] MEDS ORDERED: LORazepam 0.5 MG TAB PO ONE (13:00)
[2022-10-05] MEDS: NICOTINE 21MG/24HR 1 EA TRANSDERMAL TD SCH (16:37)
[2022-10-05] MEDS: traMADol 50 MG TAB PO PRN ×2 (16:41→20:43)
[2022-10-06 05:27] VITALS: BP 128/66; TEMP 98.1; O2SAT 98
[2022-10-06] MEDS: LACTOBACILLUS ACIDOPHILUS CAP (BACID) PO SCH ×2 (07:58→17:14)
[2022-10-06] MEDS: DOCUSATE SODIUM 100MG CAPSULE PO SCH (07:59)
[2022-10-06] MEDS: CEPHALEXIN 500 MG CAP PO SCH ×3 (07:59→17:14)
[2022-10-06] MEDS: GABAPENTIN 100 MG CAP PO SCH (08:00)
[2022-10-06] MEDS: OMEPRAZOLE 20MG CAP PO SCH (08:00)
[2022-10-06] MEDS: METHADONE 10MG TAB PO SCH (08:01)
[2022-10-06] MEDS: PERCOCET 5MG/325MG TAB PO PRN ×2 (08:02→14:11)
[2022-10-06] MEDS: ENOXAPARIN 40MG/0.4ML SYRINGE (J1650 PER 10MG) SC SCH (08:04)
[2022-10-06] MEDS ORDERED: LORazepam 1 MG TAB PO PRN (11:40)
[2022-10-06] MEDS ORDERED: BACI1CAP PO (13:06)
[2022-10-06] MEDS ORDERED: CEPH500C PO (13:06)
[2022-10-06] MEDS ORDERED: NICO21PAT TD (14:18)
[2022-10-06] MEDS ORDERED: PERCOCET PO (14:18)
[2022-10-06] MEDS ORDERED: TRAM50TA2 PO (14:18)
[2022-10-06] MEDS ORDERED: GABA-1171 PO (14:18)
[2022-10-06] MEDS: NICOTINE 21MG/24HR 1 EA TRANSDERMAL TD SCH (17:14)
[2022-10-06] MEDS: traMADol 50 MG TAB PO PRN (17:15)
== END 2022-10-06 18:00 | disposition home or self-care (01) | DRG 383 ==
LOC: EDBD 07:50 → M ED 07:50 → M ED INP 10:38 → ENRESERV 12:49 → M MS5PR 15:00 → OBSVTOIN 09-24 15:36
PROVIDERS: ADMIT Internal Medicine; ATTEND General Practice
PROC: 0Y9M0ZZ Drainage of Right Foot, Open Approach (ICD-10-PCS; principal; 2022-09-25 11:00)
DX: L03.115 Cellulitis of right lower limb (principal); I10 Essential (primary) hypertension; F17.200 Nicotine dependence, unspecified, uncomplicated; E87.6 Hypokalemia; K59.00 Constipation, unspecified; M67.471 Ganglion, right ankle and foot; F11.11 Opioid abuse, in remission; B95.61 Methicillin susceptible Staphylococcus aureus infection as the cause of diseases classified elsewhere; B19.20 Unspecified viral hepatitis C without hepatic coma; S90.821A Blister (nonthermal), right foot, initial encounter; Z59.00 Homelessness unspecified; Z65.2 Problems related to release from prison; X58.XXXA Exposure to other specified factors, initial encounter; Y93.89 Activity, other specified; Y92.9 Unspecified place or not applicable; Y99.8 Other external cause status

== ENCOUNTER 2024-04-26 12:30 | Emergency (ER) | payer MEDICAID ==
[~2024-04-26 12:30] MED LIST changes: +BACI1CAP PO; +CEPH500C PO; +COLA100C5 PO; +GABA-1171 PO; +HYDR-3490 PO; +METH-1177 PO; +NICO21PAT TD; +OMEP-173 PO; +OMEP1CAP73 PO; +PERCOCET PO; +RISATAB3 PO
[2024-04-26] MEDS: HALOPERIDOL LACTATE 5MG/ML VIAL IM ONE (12:50)
[2024-04-26] MEDS: LORazepam 2 MG/ML 1ML VIAL IM ONE (12:50)
[2024-04-26] MEDS: diphenhydrAMINE 50MG/ML VIAL IM ONE (12:50)
[2024-04-26 13:51] LABS: HEMATOCRIT 34.9 % (42.0-52.0); HEMOGLOBIN 11.8 g/dl (13.5-17.5); MEAN CORPUSCULAR HEMOGLOBIN 32.2 pg (27.0-33.0); MEAN CORPUSCULAR HGB CONC 33.8 g/dl (32.0-36.5); MEAN CORPUSCULAR VOLUME 95.1 fl (80.0-96.0); PLATELET COUNT, AUTOMATED 243 10^3/uL (150-450); RED BLOOD COUNT 3.67 10^6/uL (4.30-6.10); WHITE BLOOD COUNT 6.9 10^3/uL (4.0-10.0)
[2024-04-26 14:19] LABS: BARBITURATES URINE NEGATIVE (NEGATIVE); BENZODIAZEPINES URINE NEGATIVE (NEGATIVE); CANNABINOIDS URINE NEGATIVE (NEGATIVE); COCAINE METABOLITE URINE NEGATIVE (NEGATIVE); PHENCYCLIDINE URINE NEGATIVE (NEGATIVE)
[2024-04-26 14:20] LABS: AMPHETAMINES LEVEL URINE POSITIVE (NEGATIVE); ETHYL ALCOHOL (ETHANOL) 0.004 % (0.000-0.010); METHADONE URINE POSITIVE (NEGATIVE); OPIATES URINE POSITIVE (NEGATIVE)
[2024-04-26 14:22] LABS: ALBUMIN 4.2 G/DL (3.2-5.2); ALKALINE PHOSPHATASE 70 U/L (40-129); ALT/SGPT 77 U/L (7.0-40); AST/SGOT 198 U/L (<34); BILIRUBIN,DIRECT 0.5 MG/DL (<0.4); BILIRUBIN,TOTAL 1.1 MG/DL (0.3-1.2); BLOOD UREA NITROGEN 41 MG/DL (9-23); CARBON DIOXIDE LEVEL 26 MMOL/L (20-31); CHLORIDE LEVEL 102 MMOL/L (98-107); CREATININE FOR GFR 0.96 MG/DL (0.70-1.30); GLOMERULAR FILTRATION RATE > 60.0 (>60); GLUCOSE, FASTING 102 MG/DL (60-100); POTASSIUM SERUM 3.6 MMOL/L (3.5-5.1); SALICYLATE LEVEL < 3.0 MG/DL (<30); SODIUM LEVEL 142 MMOL/L (136-145); TOTAL PROTEIN 7.6 G/DL (5.7-8.2)
[2024-04-26 14:25] LABS: THYROID STIMULATING HORMONE 0.279 uIU/ML (0.55-4.78)
[2024-04-27] MEDS ORDERED: FAMO20TA PO (08:20)
[2024-04-27] MEDS ORDERED: TUMS500C PO (08:20)
[2024-04-27] MEDS ORDERED: PRAZ2CAP PO (08:20)
[2024-04-27] MEDS ORDERED: DULO60CA35 PO (08:20)
[2024-04-27] MEDS ORDERED: PROP20TA PO (08:20)
[2024-04-27] MEDS ORDERED: ACET-683 PO (08:20)
[2024-04-27] MEDS ORDERED: MED REC IN PROGRESS XX SCH (08:25)
[2024-04-27] MEDS: METHADONE 10MG TAB PO ONE (09:21)
[2024-04-27] MEDS ORDERED: HOME MED LIST COMPLETE! XX SCH (12:55)
[2024-04-27] MEDS ORDERED: OVERDOSE RESCUE KIT XX SCH (18:45)
[2024-04-28 03:33] VITALS: BP 127/74; TEMP 97.9; O2SAT 99
== END 2024-04-28 03:46 | disposition home or self-care (01) ==
LOC: M ED 12:30
DX: F15.10 Other stimulant abuse, uncomplicated (principal); Z88.8 Allergy status to other drugs, medicaments and biological substances; Z79.899 Other long term (current) drug therapy
CPT/HCPCS: 51701; 80048; 80076; 80143; 80307; 82077; 84443; 85027; 96372; 99284; J1200; J1630; J2060; S0109